=== PATIENT | female | born 1990 | race Caucasian/White ===

== ENCOUNTER 2017-09-23 22:56 | Emergency (ER) | payer OTHER ==
[~2017-09-23] VITALS: Ht 152.4 cm; Wt 99.8 kg
[2017-09-23 22:59] VITALS: BP 138/93
== END 2017-09-24 01:03 | disposition admitted as inpatient to this hospital (09) ==
LOC: ERH 22:56
DX: R06.00 Dyspnea, unspecified (principal); R06.2 Wheezing
CPT/HCPCS: 99281; J0696